=== PATIENT | female | born 1995 | race Caucasian/White ===

== ENCOUNTER → 2018-04-29 | Outpatient (CLI) | payer SELFPAY ==
[2018-04-30 09:50] LABS: TYPE AND SCREEN 1 1
== END ==
LOC: M SMT 11:03
DX: Z34.83 Encounter for supervision of other normal pregnancy, third trimester (principal); Z36.89 Encounter for other specified antenatal screening

== ENCOUNTER 2018-06-10 04:42 | Inpatient (IN) | payer SELFPAY ==
[2018-06-10] MEDS: PENICILLIN G POTASSIUM IV 5 MU in D5W MINI-BAG PLUS 100 ML IV ×2 (05:35→08:06)
[2018-06-10 06:01] LABS: BASO % 0.2 % (0.0-1.0); EOS % 0.2 % (0.0-3.0); HEMATOCRIT 36.8 % (36.0-47.0); HEMOGLOBIN 12.3 g/dl (12.0-15.5); IMMATURE GRANULOCYTE % 0.5 % (0-3.0); LYMPH # 1.7 10^3/uL (1.5-6.5); LYMPH % 11.5 % (24.0-44.0); MEAN CORPUSCULAR HEMOGLOBIN 31.3 pg (27.0-33.0); MEAN CORPUSCULAR HGB CONC 33.4 g/dl (32.0-36.5); MEAN CORPUSCULAR VOLUME 93.6 fl (80.0-96.0); MONO # 0.9 10^3/uL (0.0-0.8); MONO % 5.8 % (0.0-5.0); NEUTROPHILS # 12.2 10^3/uL (1.8-7.7); NEUTROPHILS % 81.8 % (36.0-66.0); PLATELET COUNT, AUTOMATED 217 10^3/uL (150-450); RED BLOOD COUNT 3.93 10^6/uL (4.00-5.40); RED CELL DISTRIBUTION WIDTH 12.7 % (11.5-14.5); WHITE BLOOD COUNT 14.9 10^3/uL (4.0-10.0)
[2018-06-10 06:40] LABS: POS COUNT POS FLAG
[2018-06-10 08:24] LABS: HBsAg Prenatal NEGATIVE (NEGATIVE)
[2018-06-10 08:27] LABS: HIV 1&2 SCREEN CENTAUR NEGATIVE (NEGATIVE)
[2018-06-10] MEDS ORDERED: PENICILLIN G POTASSIUM IV 2.5 MU in APPROPRIATE DILUENT 1 EA IV (09:45)
[2018-06-10 11:15] LABS: RUBELLA IgG QUALITATIVE SUSCEPTIBLE (IMMUNE)
[2018-06-10 11:15] LABS: HEPATITIS C VIRUS ABY INDEX < 0.0 INDEX (<0.8)
[2018-06-10] MEDS: PENICILLIN G POTASSIUM IV 2.5 MU in APPROPRIATE DILUENT 1 EA IV (12:43)
[2018-06-10] MEDS ORDERED: OXYTOCIN 30 UNITS IN 0.9% NaCl 500ML IV BAG (J2590) As Ordered (12:52)
[2018-06-10] MEDS: OXYTOCIN INJ 10 UNITS/ML VIAL (J2590) IM (13:46)
[2018-06-10] MEDS: LIDOCAINE 1% MDV 20ML VIAL INFIL (13:51)
[2018-06-10] MEDS ORDERED: METHYLERGONOVINE MALEATE 0.2 MG TAB PO (14:15)
[2018-06-10] MEDS ORDERED: IBUPROFEN 800 MG TAB PO (14:15)
[2018-06-10] MEDS ORDERED: ACETAMINOPHEN 500 MG TAB PO (14:15)
[2018-06-10] MEDS ORDERED: DOCUSATE SODIUM 100 MG CAP PO (14:15)
[2018-06-10] MEDS ORDERED: MEASLES,MUMPS,RUBELLA VACCINE INJ (MMR-II) (90707) SC (14:15)
[2018-06-10] MEDS: ANUSOL HC CREAM 30GM TOP (15:36)
[2018-06-10] MEDS: DIBUCAINE 1% OINTMENT 30GM TOP (15:36)
[2018-06-11 08:05] LABS: FETAL SCREEN PROF. 1 1
[2018-06-11] MEDS: RHOGAM 300 MCG (1500 IU) INJ (J2790) IM (08:28)
[2018-06-11] MEDS: PRENATAL VITAMINS CHEWABLE TABLET PO (09:33)
== END 2018-06-11 14:40 | disposition home or self-care (01) | DRG 560 ==
LOC: M LDO 04:42 → M LDI 05:30 → M OBS 16:14
PROVIDERS: Specialist
PROC: 10E0XZZ Delivery of Products of Conception, External Approach (ICD-10-PCS; principal; 2018-06-10)
PROC: 0HQ9XZZ Repair Perineum Skin, External Approach (ICD-10-PCS; 2018-06-10)
DX: O70.0 First degree perineal laceration during delivery (principal); Z37.0 Single live birth; Z3A.39 39 weeks gestation of pregnancy